=== PATIENT | male | born 1990 ===

== ENCOUNTER 2024-02-27 19:13 | Emergency (ER) | payer MEDICAID, SELFPAY ==
[2024-02-27 19:57] VITALS: BP 126/71; PULSE 96; RESP 18; TEMP 36.8; O2SAT 97
[2024-02-27 20:14] LABS: Amphetamine Screen Urine Negative (Negative); Barbiturate Screen Urine Negative (Negative); Benzodiazepines Screen Urine Negative (Negative); Cannabinoid Screen Urine POSITIVE (Negative); Cocaine Screen Urine Negative (Negative); Methadone Screen Urine Negative (Negative); Methamphetamines Screen Urine Negative (Negative); Opiate Screen Urine Negative (Negative); Oxycodone Screen Urine Negative (Negative); Phencyclidine Screen Urine Negative (Negative); Tricyclic Antidepressant Urine Negative (Negative)
== END 2024-02-27 20:53 | disposition home or self-care (01) ==
PROVIDERS: Emergency Provider Family Medicine
DX: Z53.21 Procedure and treatment not carried out due to patient leaving prior to being seen by health care provider (principal)
CPT/HCPCS: 80306

== ENCOUNTER 2024-05-18 02:19 | Outpatient (CLI) | payer OTHER, SELFPAY | END 2024-05-18 02:20 | disposition home or self-care (01) | LOC: AMB 05-20 08:06 | PROVIDERS: Visit Provider Family Medicine | DX: R45.851 Suicidal ideations (principal); R41.82 Altered mental status, unspecified | CPT/HCPCS: A0425; A0429 ==

== ENCOUNTER 2024-05-18 02:48 | Emergency (ER) | payer OTHER, SELFPAY ==
--- NOTE | 2024-05-18 02:53 | ED_ITS ---
HPI - General Adult General Time Seen by Provider: 02:53 Date Seen: 05/18/24 Chief complaint: Altered Mental Status Stated complaint: altered mental status Time Seen by Provider: 05/18/24 02:51 Source: patient, EMS, RN notes reviewed and old records reviewed Mode of arrival: EMS Limitations: altered mental status History of Present Illness HPI narrative: 34-year-old male who presents today with agitation. Per EMS patient was constitution party, drinking alcohol and possibly drug use although unknown. Patient himself has no complaints. Related Data Home Medications ?Medication ?Instructions ?Recorded ?Confirmed escitalopram oxalate .ROUTE 02/27/24 gabapentin .ROUTE 02/27/24 zolpidem .ROUTE 02/27/24 Allergies Allergy/AdvReac Type Severity Reaction Status Date / Time No Known Drug Allergies Allergy Verified 05/18/24 03:26 Exam Narrative: Exam Narrative: General: well nourished , agitated, difficult to direct Head: Atraumatic and normocephalic ENT: External ears and external nose are normal Eyes: Conjunctiva clear, pupils are equal reactive, external ocular motions are intact Neck: Full spontaneous range of motion of the neck Lungs: No respiratory distress Musculoskeletal: No tenderness or deformity Neurologic: No gross focal neurologic deficits Skin: No rashes Psych: Agitated Const: Vital Signs, click to edit/add: Vital Signs - 24 hr 05/18/24 03:13 Temperature 98.4 F Pulse Rate [Right Pulse Oximeter] 79 Respiratory Rate 18 Blood Pressure [Ri ght Upper Arm] 84/43 L Pulse Oximetry 95 Oxygen Delivery Me thod Room Air Course Course ED Course: Patient seen on any EMS arrival, reportedly was drinking at a constitution party, question of fall. Unable to fully assess on initial arrival due to patient agitation and difficult to direct, ambulatory in the department with no external signs of trauma. Chemical restraint with Benadryl/Haldol/Ativan ordered due to agitation and concern for staff safety and patient safety the department. After this, patient is still quite awake, although more cooperative. He has no complaints, admits to alcohol use. Patient will be allowed to sober in the department and plan to discharge in the morning. Reevaluation(s) Time of Reevaluation #1: 07:10 Reevaluation #1: Patient rested for the night, up and walking around the room and now back to sleep. Plan to side out to oncoming provider to outpatient sober and discharge. Vital Signs Vital signs: Initial Vital Signs Temperature 98.4 F 05/18/24 03:13 Temperature Source Temporal Artery Scan 05/18/24 03:13 Pulse Rate 79 05/18/24 03:13 Pulse Rhythm Regular 05/18/24 03:13 Pulse Strength 3+ Normal 05/18/24 03:13 Respiratory Rate 18 05/18/24 03:13 Blood Pressure 84/43 L 05/18/24 03:13 Blood Pressure Mean 56 L 05/18/24 03:13 Blood Pressure Position Supine 05/18/24 03:13 Pulse Oximetry 95 05/18/24 03:13 Oxygen Delivery Method Room Air 05/18/24 03:13 Vital Signs Temperature 98.4 F 05/18/24 03:13 Pulse Rate 79 05/18/24 03:13 Respiratory Rate 18 05/18/24 03:13 Blood Pressure 84/43 L 05/18/24 03:13 Pulse Oximetry 95 05/18/24 03:13 Oxygen Delivery Method Room Air 05/18/24 03:13 Temperature 98.4 F 05/18/24 03:13 Pulse Rate 79 05/18/24 03:13 Respiratory Rate 18 05/18/24 03:13 Blood Pressure 84/43 L 05/18/24 03:13 Pulse Oximetry 95 05/18/24 03:13 Oxygen Delivery Method Room Air 05/18/24 03:13 Medications Administered Medications: Discontinued Medications Generic Name Dose Route Start Last Admin Trade Name Freq PRN Reason Stop Dose Admin Diphenhydramine HCl 50 mg 05/18/24 02:51 05/18/24 03:04 Diphenhydramine 50 Mg/Ml Inj IM 05/18/24 02:52 50 mg ONCE ONE Administration Haloperidol Lactate 5 mg 05/18/24 02:51 05/18/24 03:04 Haloperidol 5 Mg/Ml Inj IM 05/18/24 02:52 5 mg ONCE ONE Administration Lorazepam 2 mg 05/18/24 02:51 05/18/24 03:03 Lorazepam 2 Mg/Ml Inj IM 05/18/24 02:52 2 mg ONCE ONE Administration Discharge Plan Discharge Clinical Impression: Alcoholic intoxication Patient Disposition: Home, Self-Care Condition: Stable Instructions: Alcohol Intoxication (DC) Activity Level: No Restrictions Discharge Diet: Regular Prescriptions: No Action zolpidem [Ambien] .ROUTE escitalopram oxalate [Lexapro] .ROUTE gabapentin .ROUTE Follow Up/Referrals: Provider,Not a Local [Primary Care Provider] - Stand Alone Forms: [employer] Info Instructions
[2024-05-18] MEDS: LORazepam 2 MG/ML inj IM (03:03)
[2024-05-18] MEDS: diphenhydrAMINE 50 MG/ML inj IM (03:04)
[2024-05-18] MEDS: HALOPERIDOL 5 MG/ML INJ IM (03:04)
[2024-05-18 03:13] VITALS: BP 84/43; PULSE 79; RESP 18; TEMP 36.9; O2SAT 95; BMI 23.0
== END 2024-05-18 09:29 | disposition home or self-care (01) ==
PROVIDERS: Emergency Provider Family Medicine
DX: F10.129 Alcohol abuse with intoxication, unspecified (principal)
CPT/HCPCS: 96372; 99283; 99284; J1200; J1630; J2060

== ENCOUNTER 2024-07-09 19:46 | Emergency (ER) | payer MEDICAID, SELFPAY ==
[2024-07-09 19:57] VITALS: BP 119/55; PULSE 140; RESP 20; TEMP 36.1; O2SAT 99
--- NOTE | 2024-07-09 20:33 | ED_ITS ---
HPI - Psych General Chief Complaint: Psychiatric Problem/Disorder Stated Complaint: mental health Time Seen by Provider: 07/09/24 19:52 History of Present Illness HPI Narrative: This 34-year-old male this brought in by police for psychiatric evaluation. He had contacted the police earlier today convinced that there were people out to get him and there were people also in his home. The police check things out and reassured him that everything was okay. He continued to have these paranoid as and contacted police again apparently. They bring him in for evaluation. He states that he does have PTSD and knows that he has a convincing thoughts that people are out to get him. He states that he has been using marijuana but not any other street drugs. He has been taking his psychotropic medications as prescribed including gabapentin, Lexapro, and Seroquel. He appears somewhat a gitated but is pleasant and cooperative. Related Data Home Medications ?Medication ?Instructions ?Recorded ?Confirmed escitalopram oxalate .ROUTE 02/27/24 gabapentin .ROUTE 02/27/24 zolpidem .ROUTE 02/27/24 Allergies Allergy/AdvReac Type Severity Reaction Status Date / Time No Known Drug Allergies Allergy Verified 05/18/24 03:26 Review of Systems Status of ROS: Reports: 10 or more systems reviewed and unremarkable except as noted in History and below Narrative: Constitutional: No fevers, no weight gain or loss. Eyes: No discharge. No vision changes. HENT: No congestion, no sore throat, no ear pain. Cardiovascular: No chest pain, no palpitations. Respiratory: No shortness of breath, no wheezes, no cough. Gastrointestinal: No abdominal pain, no vomiting, no diarrhea. Genitourinary: No dysuria, no hematuria. Musculoskeletal: Normal range of motion. Skin: No rashes, no pruritis. Neurological: No dizziness, weakness, sensory change, speech change. Endo/Heme/Allergies: No bruising or bleeding. No polydipsia. Pysch: PTSD, anxiety, paranoia as. All other systems reviewed and are negative. Exam Narrative: Exam Narrative: Constitutional: Well-developed, well-nourished, no acute distress. HEENT: Normocephalic, atraumatic. Neck: Normal range of motion. Nontender. Supple. Heart: Intact distal pulses. Lungs: No chest discomfort. No wheezes, rhonchi, or rales. Abdomen: Nontender. Back: Normal range of motion. Extremities: Normal range of motion. No injury. Skin: Intact. No rash. Warm. No erythema or pallor. Neurologic: No altered sensation. No weakness. Alert and oriented. Psychiatric: No report of suicidality. He reports lots of anxiety and paranoia about people out to get him. Nursing notes and vitals signs are reviewed. Const: Vital Signs, click to edit/add: Vital Signs - 24 hr 07/09/24 19:57 Temperature 97.0 F L Pulse Rate [Left P ulse Oximeter] 140 H Respiratory Rate 20 Blood Pressure [Ri ght Upper Arm] 119/55 L Pulse Oximetry 99 Oxygen Delivery Me thod Room Air Course Vital Signs Vital signs: Initial Vital Signs Temperature 97.0 F L 07/09/24 19:57 Temperature Source Temporal Artery Scan 07/09/24 19:57 Pulse Rate 140 H 07/09/24 19:57 Pulse Rhythm Regular 07/09/24 19:57 Respiratory Rate 20 07/09/24 19:57 Blood Pressure 119/55 L 07/09/24 19:57 Blood Pressure Mean 76 07/09/24 19:57 Blood Pressure Position Sitting 07/09/24 19:57 Pulse Oximetry 99 07/09/24 19:57 Oxygen Delivery Method Room Air 07/09/24 19:57 Vital Signs Temperature 97.0 F L 07/09/24 19:57 Pulse Rate 140 H 07/09/24 19:57 Respiratory Rate 20 07/09/24 19:57 Blood Pressure 119/55 L 07/09/24 19:57 Pulse Oximetry 99 07/09/24 19:57 Oxygen Delivery Method Room Air 07/09/24 19:57 Temperature 97.0 F L 07/09/24 19:57 Pulse Rate 140 H 07/09/24 19:57 Respiratory Rate 20 07/09/24 19:57 Blood Pressure 119/55 L 07/09/24 19:57 Pulse Oximetry 99 07/09/24 19:57 Oxygen Delivery Method Room Air 07/09/24 19:57 Medications Administered Medications: Discontinued Medications Generic Name Dose Route Start Last Admin Trade Name Freq PRN Reason Stop Dose Admin Lorazepam 1 mg 07/09/24 20:32 07/09/24 20:38 Lorazepam 1 Mg Tablet PO 07/09/24 20:33 1 mg ONCE ONE Administration Olanzapine 10 mg 07/09/24 21:21 07/09/24 21:45 Olanzapine 5 Mg Tab.Rapdis PO 07/09/24 21:22 10 mg ONCE ONE Administration MDM - Psych MDM Narrative Medical decision making narrative: This patient has significant paranoia and anxiety and at times becomes agitated. He did receive an oral dose of Ativan 1 mg. A tele [facility] mental assessment was obtained also and recommendation is for inpatient evaluation and treatment. The patient stated to me that he is taking his medications but states to the telehealth eating disorder specialist that he has not taking any medicines for a couple months. I did prescribe 10 mg of Zyprexa orally. This brought good relief to his symptoms in the patient is sleeping comfortably. Attempt was made for placement in an inpatient psych facility but there were no beds available currently. The patient will reside here until something opens. Discharge Plan Discharge Clinical Impression: Acute paranoia, Acute anxiety, Chronic posttraumatic stress disorder Condition: Unchanged Prescriptions: No Action zolpidem [Ambien] .ROUTE escitalopram oxalate [Lexapro] .ROUTE gabapentin .ROUTE Follow Up/Referrals: Provider,Not a Local [Primary Care Provider] -
[2024-07-09] MEDS: LORazepam 1 MG TABLET PO (20:38)
--- NOTE | 2024-07-09 20:59 | ED.NURSE ---
Pt beginning to talk to himself and look to see if there are windows exposing him to public view. States he is feeling okay at this time. Will continue to monitor, pt is redirectable at this time.
--- NOTE | 2024-07-09 21:08 | ED.NURSE ---
Talking with Prosper in the room at this time [id number]
--- NOTE | 2024-07-09 21:42 | ED.NURSE ---
Pt keeps opening door to room and looking to see who is coming and going in the ER, he wants no visitors, assistant front end manager is aware.
[2024-07-09] MEDS: OLANZapine 5 MG TAB.RAPDIS 10 MG PO (21:45)
[2024-07-10 04:00] VITALS: PULSE 92; RESP 16; O2SAT 98
[2024-07-10] MEDS: QUETIAPINE 25 MG TABLET 50 MG PO (09:46)
[2024-07-10] MEDS: LORazepam 1 MG TABLET PO (09:47)
[2024-07-10] MEDS: ESCITALOPRAM 10 MG TABLET PO (10:30)
[2024-07-10] MEDS: GABAPENTIN 100 MG CAPSULE PO (10:30)
[2024-07-10] MEDS: OLANZapine 5 MG/ML inj 10 MG IM (10:55)
[2024-07-10 12:32] LABS: PCR FLU A Negative PCR FLU A (Negative); PCR FLU B Negative PCR FLU B (Negative); PCR RSV Negative PCR RSV (Negative); SARS PCR* Negative SARS-CoV-2 (Negative)
[2024-07-10 14:47] LABS: Appearance Urine Clear (Clear); Bilirubin Urine Negative (Negative); Blood Urine Negative (Negative); Color Urine Yellow (Yellow); Glucose Urine Negative (Negative); Ketones Urine Negative (Negative); Leukocyte Esterase Urine Negative (Negative); Nitrite Urine Negative (Negative); Protein Urine Negative (Negative); Specific Gravity Urine <= 1.005 (1.000-1.030); Urobilinogen Urine 0.2 (0.2-1.0); pH Urine 5.5 (5.0-8.5)
[2024-07-10 14:59] LABS: RBC Urine 0-2 (0-2); WBC Urine 0-2 (0-5)
[2024-07-10 17:47] VITALS: BP 137/97; PULSE 102; RESP 18; TEMP 36.6; O2SAT 98
[2024-07-10 21:10] VITALS: BP 107/64; PULSE 60; RESP 16; TEMP 37.3; O2SAT 96
[2024-07-10] MEDS: OLANZapine 5 MG TAB.RAPDIS 10 MG PO (21:16)
[2024-07-10 23:57] LABS: Amphetamine Screen Urine POSITIVE (Negative); Benzodiazepines Screen Urine POSITIVE (Negative); Cannabinoid Screen Urine POSITIVE (Negative); Cocaine Screen Urine Negative (Negative); Methamphetamines Screen Urine POSITIVE (Negative); Opiate Screen Urine Negative (Negative); Phencyclidine Screen Urine Negative (Negative)
[2024-07-10 23:58] LABS: Barbiturate Screen Urine Negative (Negative); Buprenorphine Screen Urine Negative (Negative); Methadone Screen Urine Negative (Negative); Oxycodone Screen Urine Negative (Negative); Tricyclic Antidepressant Urine POSITIVE (Negative); White Blood Count* 7.92 K/uL (4.50-11.00)
[2024-07-10 23:59] LABS: Hematocrit 46.6 % (37.0-53.0); Hemoglobin* 15.5 gm/dL (13.5-17.5); Lymphocytes Percent Auto 21.5 % (20-44); Mean Corpuscular HGB Conc 33 gm/dL (32-36); Mean Corpuscular Hemoglobin 31 pg (26-34); Mean Corpuscular Volume 92 fL (80-100); Neutrophils Percent Auto 63.6 % (42.0-72.0); Platelet Count* 275 K/uL (140-440); RDW Coefficient of Variation % 12.6 % (11.5-15.5); Red Blood Count 5.05 m/uL (4.30-5.90)
[2024-07-11] LABS: Basophils Percent Auto 0.8 % (0.0-3.0); Chloride* 103 mmol/L (96-114); Monocytes Percent Auto 11.1 % (0.0-11.0); Potassium* 3.7 mmol/L (3.6-5.1); Slide Review Reflex No; Sodium* 137 mmol/L (135-149)
[2024-07-11 00:01] LABS: Acetaminophen* < 10.0 ug/mL (10.0-30.0); Anion Gap 11 mEq/L (7-15); Blood Urea Nitrogen* 25 mg/dL (5-24); Calcium* 9.3 mg/dL (8.4-10.6); Carbon Dioxide* 23 mmol/L (20-32); Creatinine* 0.7 mg/dL (0.5-1.5); Estimated Glomerular Filt Rate 124 ml/min; Ethanol* < 0.01 % (0.01-0.03); Glucose* 115 mg/dL (60-115)
[2024-07-11 06:21] VITALS: BP 176/80; PULSE 99; RESP 16; O2SAT 98
[2024-07-11] MEDS: LORazepam 1 MG TABLET 2 MG PO (06:29)
[2024-07-11 15:30] VITALS: BP 135/92; PULSE 87; RESP 20; O2SAT 98
[2024-07-11] MEDS: GABAPENTIN 100 MG CAPSULE PO (17:34)
[2024-07-11] MEDS: OLANZapine 5 MG TAB.RAPDIS 10 MG PO (18:22)
[2024-07-11] MEDS: QUETIAPINE 25 MG TABLET 50 MG PO (18:46)
[2024-07-11] MEDS: ESCITALOPRAM 10 MG TABLET PO (18:47)
[2024-07-12 02:31] VITALS: BP 128/74; PULSE 81; RESP 20; TEMP 37.3; O2SAT 98
[2024-07-12 05:00] VITALS: BP 118/70; PULSE 79; RESP 20; TEMP 37.3; O2SAT 98
== END 2024-07-12 11:41 | disposition home or self-care (01) ==
PROVIDERS: Emergency Medicine; Emergency Medicine Emergency Medical Services; Emergency Provider Family Medicine
DX: F43.12 Post-traumatic stress disorder, chronic (principal); F60.0 Paranoid personality disorder
CPT/HCPCS: 36415; 80048; 80143; 80306; 81001; 82077; 85025; 87631; 99284; A9270

== ENCOUNTER 2024-10-24 01:41 | Emergency (ER) | payer MEDICAID, SELFPAY ==
--- OUTSIDE RECORDS SUMMARY | 2024-10-24 01:44 | XMS_ITS | Clinical Summary ---
Author Organization [facility] Address [address] [place] [id number] Care Team Providers Care Hand Surgeon Name Role Phone Pcp, No Primary Care Provider Unavailabl e Allergies No known active allergies Medications gabapentin (NEURONTIN) 100 mg capsule Take 1 Capsule (100 mg) by mouth three times daily. 09/11/2024 Active QUEtiapine (SEROQUEL) 25 mg tabletIndicatio ns:JERALD (generalized anxiety disorder),Depre ssion, recurrent Take 1 Tablet (25 mg) by mouth at bedtime. 90 Tablet 3 09/11/2024 Active escitalopram oxalate (LEXAPRO) 10 mg tabletIndicatio ns:JERALD (generalized anxiety disorder) Take 1 Tablet (10 mg) by mouth once daily. 90 Tablet 3 09/11/2024 Active Active Problems Problem Noted Date Diagnosed Date Alcohol use 09/11/2024 JERALD (generalized anxiety disorder) 09/11/2024 Depression, recurrent 09/11/2024 Encounters Date Type Department Care Team Description 10/04/2024 6:52 PM CDT - 10/05/2024 11:17 AM CDT Emergency [facility] Emergency Department [address] [place] [address] Darren Gloria MD Bowler, MD Tyrone García, Travis Iglesias MD Schizoaffective disorder, unspecified type (HC) (Primary Dx); JERALD (generalized anxiety disorder); Paranoia (HC); Nightmares; Depression, unspecified depression type; Insomnia, unspecified type; Noncompliance with medication regimen Discharge Disposition: Home Self Care 10/04/2024 Travel 09/27/2024 Patient Outreach [employer] Care Management - Care Management Navigation/[facility] [address] [place] [id number] [facility]-Community Resource Navigation 09/11/2024 10:35 AM OBSTETRICS TECH Office Visit [facility] [address] [place] [address] Clint Sargent, Depression (Would like to get my head straight - just moved here in June - previously doctoring in [place] ); Anxiety (Has used lexapro, Seroquel, gabapentin); Alcohol Problem (Was drinking not a lot - has not drank since New Year /Has not used marijuana since ) 09/10/2024 Travel from Last 3 Months Social History Tobacco Use Types Packs/Day Years Used Date Smoking Tobacco: Former Cigarettes Q uit: 06/18/2023 Smokeless Tobacco: Never Tobacco Cessation:Counseling Given: Not Answered Alcohol Use Standard Drinks/Week Comments Not Currently 0 (1 standard drink = 0.6 oz pur e alcohol) Sober since 07/2024 Social Connections Answer Date Recorded Do you often feel lonely or isolated from those around you? 4 09/10/2024 Financial Resource Strain Answer Date R ecorded Difficulty of Paying Living Expenses Not on file 09/10/2024 Difficulty of Paying Living Expenses 3 09/10/2024 Food Insecurity Answer Date Recorded Do you worry your food will run out before you are able to buy more? 2 09/10/2024 Transportation Needs Answer Date Record ed Does lack of transportation keep you from medica l appointments? 2 09/10/2024 Does lack of transportation keep you from work, meetings or getting things that you need? 2 09/10/2024 Housing Stability Answer Date Recorded What is your housing situation today? 2 09/10/2024 Interpersonal Safety Answer Date Record ed Are you being hit, kicked, p ushed or yelled at (see row info)? No 10/04/2024 Interpersonal Safety Abuse 12 - 18 Not on file 10/04/2024 Interpersonal Safety Ambulatory Vulnerability No t on file 10/04/2024 Utilities Answer Date Recorded Do you have trouble paying f or utilities (for example, heat, electricity, water, phone)? 2 09/10/2024 Sex and Gender Information Value Date Recorded Sex Assigned at Not on file Legal Sex Male 10:33 AM OBSTETRICS TECH Gender Identity Not on file Sexual Orientation Not on file Obstetrics History Last Filed Vital Signs Vital Sign Reading Time Taken Comments Blood Pressure 112/81 10/05/2024 8:25 AM CDT Pulse 59 10/05/2024 8:25 AM CDT Temperature 36.7 C (98 F) 10/04/2024 12:42 PM CDT Respiratory Rate 16 10/05/2024 8:25 AM CDT Oxygen Saturation 97% 10/05/2024 8:25 AM CDT Inhaled Oxygen Concentration - - Weight 80.7 kg (178 lb) 10/04/2024 12:42 PM CDT Height 182.9 cm (6') 10/04/2024 12:42 PM CDT Body Mass Index 24.14 10/04/2024 12:42 PM CDT Plan of Treatment Health Maintenance Due Date Last Done Comments Tdap 2001 Depression screening for age 12+ 2002 HIV for age 15-65 2005 BMI (ht and wt on same day) for age 18+ 2008 Hepatitis C screening for ag e 18-79 2008 Tetanus booster 2010 COVID-19 vaccine series ( season) 2024 Influenza Vaccine (Season Ended) 2025 Pneumococcal series for age 6-49 Aged Out No longer eligible based on patient's age to complete this topic Procedures Procedure Name Priority Date/Time Associated Diagnosis Comments DRUG SCREEN RAPID URINE INHOUSE STAT 10/05/2024 6:27 AM CDT GLUCOSE METER Timed 10/04/2024 9:33 PM CDT from Last 3 Months Results * (ABNORMAL) DRUG SCREEN RAPID URINE INHOUSE (10/05/2024 6:27 AM CDT) THC METABOLITES,MARLENA L Non-negative , consider further testing if indicated(A) Not Detected 10/05/2024 6:57 AM CDT [facility] PCP,QUAL Not Detected Not Detected 10/05/2024 6:57 AM CDT [facility] COCAINE,QUAL Not Detected Not Detected 10/05/2024 6:57 AM CDT [facility] METHAMPHETAMINE , QUALITATIVE Non-negative , consider further testing if indicated(A) Not Detected 10/05/2024 6:57 AM CDT [facility] OPIATES,QUAL Not Detected Not Detected 10/05/2024 6:57 AM T [facility] AMPHETAMINE, QUALITATIVE Non-negative , consider further testing if indicated(A) Not Detected 10/05/2024 6:57 AM T [facility] BENZODIAZEPINES ,QUAL Non-negative , consider further testing if indicated(A) Not Detected 10/05/2024 6:57 AM CDT [facility] TRICYCLICS,QUAL Not Detected Not Detected 10/05/2024 6:57 AM CDT [facility] METHADONE, QUALITATIVE Not Detected Not Detected 10/05/2024 6:57 AM [facility] BARBITURATES,QU AL Not Detected Not Detected 10/05/2024 6:57 AM T [facility] OXYCODONE, QUALITATIVE Not Detected Not Detected 10/05/2024 6:57 AM [facility] BUPRENORPHINE, QUALITATIVE Not Detected Not Detected 10/05/2024 6:57 AM [facility] Urine URINE SPECIMEN / Unknown Non-Blood / Unknown 10/05/2024 6:27 AM CDT 10/05/2024 6:[address] [facility] - 10/05/2024 6:57 AM CDT Please Note: This is a screening test only, all results are unconfirmed and should be used for medical purposes only. Unconfirmed results must not be used for non-medical purposes (e.g., employment testing, legal testing). Suggest analyte specific confirmation for all non-negative results. Specimens will be held for 24 hours if additional testing is needed. The following threshold concentrations are used for this analysis: Drug Screening Threshold Buprenorphine 10 ng/mL PCP 25 ng/mL THC Metabolites 50 ng/mL *Opiates 100 ng/mL Oxycodone 100 ng/mL Cocaine 150 ng/mL Benzodiazepines 150 ng/mL Methadone 200 ng/mL Barbiturates 200 ng/mL Tricyclic Antidepressants 300 ng/mL Amphetamines 500 ng/mL Methamphetamines 500 ng/mL *Includes related compounds: Codeine 50 ng/mL Heroin 100 ng/mL Morphine 100 ng/mL Hydrocodone 400 ng/mL Hydromorphone 800 ng/mL Venlafaxine (Effexor) is a known cross reactant in the PCP assay. If clinically indicated, order PCP confirmation. us Darren Gloria MD URINE Final Result [facility] [address] [address], * (ABNORMAL) GLUCOSE METER (10/04/2024 9:33 PM CDT) [facility] GLUCOSE METER 101(H) 65 - 100 mg/dL 10/05/2024 12:31 AM CDT [facility] Blood BLOOD SPECIMEN / Unknown 10/04/2024 9:33 PM CDT 10/05/2024 12:31 AM CDT Darren Gloria MD CHEMISTRY Final Result Performing Organization Address City/[facility]/ZIP Co de Phone Number [facility] [address] [place] [address], from Last 3 Months Insurance [facility] Care Teams Hand Surgeon Relationship Specialty Start Date End Date Pcp, No . PCP - General 09/01/24
[2024-10-24 02:01] VITALS: BP 156/99; PULSE 128; RESP 16; O2SAT 99; BMI 25.8
--- NOTE | 2024-10-24 02:20 | ED_ITS ---
HPI - General Adult General Chief complaint: Psychiatric Problem/Disorder <Nicolle Colvin MD - Last Filed: 10/24/24 23:56> Stated complaint: mental health <Nicolle Colvin MD - Last Filed: 10/24/24 23:56> Time Seen by Provider: 10/24/24 01:47 <Nicolle Colvin MD - Last Filed: 10/24/24 23:56> Source: patient and police <Nicolle Colvin MD - Last Filed: 10/24/24 23:56> Mode of arrival: ambulatory <Nicolle Colvin MD - Last Filed: 10/24/24 23:56> History of Present Illness HPI narrative: 34-year-old male with a notable prior history of what he initially states his PTSD but then more clearly describes as schizoaffective disorder, delusional disorder and then eventually does disclose that someone has suspected him of having manic episodes. Reports that he has had poor functioning since around [place]. Review of the records shows that he was last evaluated in our ED on 07/09. He was eventually discharged after his symptoms improved after restarting antipsychotic medications on the . Patient reports that he has seen a psychiatrist at [facility], last visit was a couple of months ago. He has been prescribed Seroquel him the past for his moods. It sounds as though he has been very inconsistent with taking the medication. He tells me that he had been just taking little nibbles of it because it tends to make him more tired. He had been prescribed 100 mg daily in the past according to what limited records we have. He states that the psychiatrist he saw more recently prescribed 25 mg and patient has actually been taking 2 tablets per day over the last week or so because he feels like his paranoia and delusions are getting stronger. He has insight that these thoughts are not completely logical. He gets fleeting thoughts that he is the president and someone is trying to assess sedate him and that there are people on the rough but then he will come to his senses and know that that is not real but still feels significant anxiety and paranoia regarding this. He is only sleeping a couple of hours per day even though he does try to sleep for about 5 hours but finds himself restless. He tells me that he is taking Lexapro 10 mg once daily, he also has a history of ADHD and is not currently on treatment for that. He does not use any sleep aids. No illicit drugs or alcohol. He does take gabapentin 300 t.i.d. for chronic pain in his heel from a calcaneus fracture, remote. No recent changes to that dose and he tells me that he has been on that for at least a couple of years. No recent fevers, illness or trauma. Denies any acute medical symptoms like chest pain, GI bleed, chronic diarrhea or weight loss. He is currently living with an ex girlfriend who he states is a real estate branch manager at [place] named Ingris. Previous ED note indicates that he has a mother in the [place] area. He did have some mild agitation initially at his last ED visit but was then calm th rough the rest of the encounter until he was able to be discharged. He does admit to some restless leg symptoms and denies ever being on treatment for that. He did call the research chemical engineer to have them come check to see if there was someone on his rough and they were able to reassure him that he was not in immediate danger but they did encourage him to come voluntarily to the hospital to to have his mental health checked out and he oblige is. He admits that his family has been urging him to seek care and that he has been spiraling for the last few months. Denies suicidal ideation. No history of self-harm. Has been hospitalized for his moods in the past but he goes quiet when I ask about specifics and timeline on that. Past medical history notable for mental health illness, it sounds like definite diagnosis of schizoaffective disorder and some sort of depression and anxiety as well as ADHD. He denies substance abuse to me but during the telehealth assessment he did admit to that provider that he had been doing some cocaine that he thinks may have been laced with methamphetamines but will not clarify for her the timeline of this. Adamantly denied drugs and alcohol both to me. ROS is negative for any medical symptoms times 12 systems with the exception of insomnia, paranoia and mental health issues as further described above. <Nicolle Colvin MD - Last Filed: 10/24/24 23:56> Related Data Home medications: Home Medications ?Medication ?Instructions ?Recorded ?Confirmed gabapentin 300 mg PO TID 02/27/24 10/24/24 zolpidem .Route 02/27/24 escitalopram oxalate 10 mg tablet 10 mg PO DAILY 10/24/24 10/24/24 quetiapine 25 mg tablet 25 mg PO QPM 10/24/24 10/24/24 <Nicolle Colvin MD - Last Filed: 10/24/24 23:56> Allergies/adverse reactions: Allergies Allergy/AdvReac Type Severity Reaction Status Date / Time No Known Drug Allergies Allergy Verified 10/24/24 02:53 <Nicolle Colvin MD - Last Filed: 10/24/24 23:56> [facility] Medical History: Medical History Bipolar disorder ?F31.9 - Bipolar disorder, unspecified (ICD-10) Paranoia ?F22 - Delusional disorders (ICD-10) <Nicolle Colvin MD - Last Filed: 10/24/24 23:56> Social History: Social History Do you use any of these nicotine containing products: Vaping Products <Nicolle Colvin MD - Last Filed: 10/24/24 23:56> Exam Const: Vital Signs, click to edit/add: Vital Signs - 24 hr 10/24/24 02:01 10/24/24 04:31 10/24/24 09:00 Temperature 98.3 F Pulse Rate [Pulse Oximeter] 128 H 109 H 88 Respiratory Rate 16 16 16 Blood Pressure [Ri ght Upper Arm] 156/99 H 135/89 123/79 Pulse Oximetry 99 97 95 Oxygen Delivery Me thod Room Air Room Air Room Air <Nicolle Colvin MD - Last Filed: 10/24/24 23:56> Vital Signs, click to edit/add: Vital Signs - 24 hr 10/24/24 02:01 10/24/24 04:31 10/24/24 09:00 Temperature 98.3 F Pulse Rate [Pulse Oximeter] 128 H 109 H 88 Respiratory Rate 16 16 16 Blood Pressure [Ri ght Upper Arm] 156/99 H 135/89 123/79 Pulse Oximetry 99 97 95 Oxygen Delivery Me thod Room Air Room Air Room Air <Andrea Brito MD - Last Filed: 10/24/24 15:24> Documenting provider has reviewed patient's vital signs: yes <Nicolle Colvin MD - Last Filed: 10/24/24 23:56> Common normals: alert <Nicolle Colvin MD - Last Filed: 10/24/24 23:56> Other: Calm and cooperative. He comes in very casually dressed in athletic where but clean, no malodor. Does make eye contact, restless but no agitation or aggressive behavior. Police accompany him in but stand the side and they do depart about 10 minutes into our conversation as it is clear that he is calm and cooperative. <Nicolle Colvin MD - Last Filed: 10/24/24 23:56> HENMT: Common normals: normocephalic, nasal mucous membranes and turbinates normal, moist oral mucous membranes, oropharynx normal and dentition normal <Nicolle Colvin MD - Last Filed: 10/24/24 23:56> Head and scalp: normocephalic <Nicolle Colvin MD - Last Filed: 10/24/24 23:56> Nose: nasal mucous membranes and turbinates normal <Nicolle Colvin MD - Last Filed: 10/24/24 23:56> Eye: Common normals: PERRL, EOMs intact bilaterally, conjunctivae normal and no scleral icterus <Nicolle Colvin MD - Last Filed: 10/24/24 23:56> Conjunctiva: conjunctiva(e) normal <Nicolle Colvin MD - Last Filed: 10/24/24 23:56> Pupil: PERRL <Nicolle Colvin MD - Last Filed: 10/24/24 23:56> Neck & C-Spine: Common normals: full ROM, no lymphadenopathy and no meningeal signs <Nicolle Colvin MD - Last Filed: 10/24/24 23:56> Resp: Common normals: normal respiratory effort, no use of accessory muscles and clear to auscultation bilaterally <MD Ronald Moore Last Filed: 10/24/24 23:56> Effort & inspection: able to speak in complete sentences <MD Ronald Moore Last Filed: 10/24/24 23:56> Auscultation: clear to auscultation bilaterally <MD Ronald Moore Last Filed: 10/24/24 23:56> Cardio: Common normals: regular rate, regular rhythm, S1 normal heart sound, S2 normal heart sound and no murmurs <MD Ronald Moore Last Filed: 10/24/24 23:56> Rate: regular rate <MD Ronald Moore Last Filed: 10/24/24 23:56> Rhythm: regular rhythm <MD Ronald Moore Last Filed: 10/24/24 23:56> Heart sounds: S1 normal and S2 normal <MD Ronald Moore Last Filed: 10/24/24 23:56> GI: Common normals: Normal to inspection, nondistended, normoactive bowel sounds present, soft to palpation, non-tender, no hepatosplenomegaly and no masses <MD Ronald Moore Last Filed: 10/24/24 23:56> Palpation: soft and no hepatosplenomegaly <MD Ronald Moore Last Filed: 10/24/24 23:56> Back & Pelvis: Common normals: thoracic and lumbar spine normal to inspection <MD Ronald Moore Last Filed: 10/24/24 23:56> Extremity: Common normals: normal to inspection and normal capillary refill <MD Ronald Moore Last Filed: 10/24/24 23:56> Neuro: Sensorium/orientation: alert <MD Ronald Moore Last Filed: 10/24/24 23:56> Meningeal signs: no meningeal signs <MD Ronald Moore Last Filed: 10/24/24 23:56> Speech: speech normal <MD Ronald Moore Last Filed: 10/24/24 23:56> Gait (neuro): normal gait <Nicolle Colvin MD - Last Filed: 10/24/24 23:56> Motor exam: strength 5/5 throughout and no tremor noted <Nicolle Colvin MD - Last Filed: 10/24/24 23:56> Psych: Appearance: grossly normal <Nicolle Colvin MD - Last Filed: 10/24/24 23:56> Other: Patient is slightly restless but no agitation. He is cooperative with exam though guarded. No suicidal or homicidal thoughts. Does seem paranoid but with insight into the fact that these are probably delusions. His thought process is tangental, attempts to ask him to clarify do not always correctly answer a question. He is redirectable, goal directed. He accepts reasoning and does seem fairly intelligent. <Nicolle Colvin MD - Last Filed: 10/24/24 23:56> Skin: Common normals: no rashes or lesions noted <Nicolle Colvin MD - Last Filed: 10/24/24 23:56> Narrative: No signs of self injury or recent trauma. <Nicolle Colvin MD - Last Filed: 10/24/24 23:56> General skin exam: no rashes or lesions noted <Nicolle Colvin MD - Last Filed: 10/24/24 23:56> Course Course ED Course: 34-year-old male with symptoms of hypomania and paranoid delusions, questioning substance induced mood disorder based on telehealth interpretation but more likely multifactorial and from chronic mental illness since this has been going on for the past 4 months. Patient was agreeable to a trial of some oral medications to help stabilize him. I do think that this is a hypomanic spell and I have recommended that we start Depakote. Since I am not quite sure what he has been taking and I do not have labs back, I will start low with Depakote 250 mg p.o. b.i.d., 1st dose now and Abilify only 5 mg to be given at bedtime, 1st dose now as well. He does verbalize some concerns about restless leg, I have recommended an 8th of a mg of Mirapex and 0.5 mg of oral lorazepam p.o. x1 and we will see how this goes. Will place him on a regular diet, he is here voluntarily at this point. I will also order lorazepam p.r.n.. I have spoken with the [facility], she did not really give me much for additional insight other than the fact that he admitted to substance abuse. Did not offer any suggestions on treatment plan, placement recommendations, etc.. Because of this, I have asked for psychiatry input, they will be contacting the psychiatry provider. Labs are currently pending. <Nicolle Colvin MD - Last Filed: 10/24/24 23:56> Reevaluation(s) Time of Reevaluation #1: 04:08 <Nicolle Colvin MD - Last Filed: 10/24/24 23:56> Reevaluation #1: PSychiatry agrees that he seems to be exhibiting signs of hypomania as well, patient did admit to cocaine and methamphetamine use. That provider does not feel like the patient is safe for discharge right now. Does recommend that we put him on a hold if he attempts to leave. This will be done. At this point, he is voluntary. In agreement with my initial medication recommendations, they will start the process of attempting to find inpatient treatment. update: Patient slept comfortably overnight after willingly taking the Ativan and melatonin that were offered. It is difficult to sort out how much of his symptoms are methamphetamine induced and how much are chronic and ongoing. I do think that there is a mixture of both. I do have both the Depakote and Abilify scheduled to continue. He has not needed additional p.r.n. Ativan that is ordered. I recommend that we re-evaluate the patient's mental status when he wakes, after more time has elapsed from the methamphetamines and decide if additional treatment is warranted. It does sound as though he has had several months of paranoia and poor functioning and has been Hap has early taking his medications. Based on that alone, I do think he still needs inpatient treatment. If he stabilizes quickly on the aripiprazole and Depakote, consider this plan outpatient. He is likely to need a higher dose of the Depakote. Will hand over care to oncoming day shift team <Nicolle Colvin MD - Last Filed: 10/24/24 23:56> Vital Signs Vital signs: Initial Vital Signs Pulse Rate 128 H 10/24/24 02:01 Respiratory Rate 16 10/24/24 02:01 Blood Pressure 156/99 H 10/24/24 02:01 Blood Pressure Mean 118 H 10/24/24 02:01 Blood Pressure Position Sitting 10/24/24 02:01 Pulse Oximetry 99 10/24/24 02:01 Oxygen Delivery Method Room Air 10/24/24 02:01 Vital Signs Pulse Rate 128 H 10/24/24 02:01 Respiratory Rate 16 10/24/24 02:01 Blood Pressure 156/99 H 10/24/24 02:01 Pulse Oximetry 99 10/24/24 02:01 Oxygen Delivery Method Room Air 10/24/24 02:01 Temperature 98.3 F 10/24/24 04:31 Pulse Rate 88 10/24/24 09:00 Respiratory Rate 16 10/24/24 09:00 Blood Pressure 123/79 10/24/24 09:00 Pulse Oximetry 95 10/24/24 09:00 Oxygen Delivery Method Room Air 10/24/24 09:00 <Nicolle Colvin MD - Last Filed: 10/24/24 23:56> Initial Vital Signs Pulse Rate 128 H 10/24/24 02:01 Respiratory Rate 16 10/24/24 02:01 Blood Pressure 156/99 H 10/24/24 02:01 Blood Pressure Mean 118 H 10/24/24 02:01 Blood Pressure Position Sitting 10/24/24 02:01 Pulse Oximetry 99 10/24/24 02:01 Oxygen Delivery Method Room Air 10/24/24 02:01 Vital Signs Pulse Rate 128 H 10/24/24 02:01 Respiratory Rate 16 10/24/24 02:01 Blood Pressure 156/99 H 10/24/24 02:01 Pulse Oximetry 99 10/24/24 02:01 Oxygen Delivery Method Room Air 10/24/24 02:01 Temperature 98.3 F 10/24/24 04:31 Pulse Rate 88 10/24/24 09:00 Respiratory Rate 16 10/24/24 09:00 Blood Pressure 123/79 10/24/24 09:00 Pulse Oximetry 95 10/24/24 09:00 Oxygen Delivery Method Room Air 10/24/24 09:00 <Andrea Brito MD - Last Filed: 10/24/24 15:24> Medications Administered Medications: Discontinued Medications Generic Name Dose Route Start Last Admin Trade Name Freq PRN Reason Stop Dose Admin Aripiprazole 5 mg 10/24/24 02:14 10/24/24 02:41 Aripiprazole 10 Mg Tablet PO 10/24/24 02:15 5 mg ONCE ONE Administration Divalproex Sodium 250 mg 10/24/24 02:14 10/24/24 02:36 Divalproex Sodium Er Tab 250 Mg PO 10/24/24 02:15 250 mg ONCE ONE Administration Lorazepam 0.5 mg 10/24/24 02:15 10/24/24 02:35 Lorazepam 0.5 Mg Tablet PO 10/24/24 02:16 0.5 mg ONCE ONE Administration Lorazepam 2 mg 10/24/24 04:18 10/24/24 04:22 Lorazepam 1 Mg Tablet PO 10/24/24 04:19 2 mg ONCE ONE Administration Melatonin 9 mg 10/24/24 21:00 10/24/24 04:33 Melatonin 3 Mg Tablet PO 9 mg HS ANTOINETTE Administration Pramipexole Dihydrochloride 0.125 mg 10/24/24 02:15 10/24/24 02:41 Pramipexole 0.25 Mg Tablet PO 0.125 mg HS ANTOINETTE Administration <Nicolle Colvin MD - Last Filed: 10/24/24 23:56> Discontinued Medications Generic Name Dose Route Start Last Admin Trade Name Freq PRN Reason Stop Dose Admin Aripiprazole 5 mg 10/24/24 02:14 10/24/24 02:41 Aripiprazole 10 Mg Tablet PO 10/24/24 02:15 5 mg ONCE ONE Administration Divalproex Sodium 250 mg 10/24/24 02:14 10/24/24 02:36 Divalproex Sodium Er Tab 250 Mg PO 10/24/24 02:15 250 mg ONCE ONE Administration Lorazepam 0.5 mg 10/24/24 02:15 10/24/24 02:35 Lorazepam 0.5 Mg Tablet PO 10/24/24 02:16 0.5 mg ONCE ONE Administration Lorazepam 2 mg 10/24/24 04:18 10/24/24 04:22 Lorazepam 1 Mg Tablet PO 10/24/24 04:19 2 mg ONCE ONE Administration Melatonin 9 mg 10/24/24 21:00 10/24/24 04:33 Melatonin 3 Mg Tablet PO 9 mg HS ANTOINETTE Administration Pramipexole Dihydrochloride 0.125 mg 10/24/24 02:15 10/24/24 02:41 Pramipexole 0.25 Mg Tablet PO 0.125 mg HS ANTOINETTE Administration <Andrea Brito MD - Last Filed: 10/24/24 15:24> Medical Decision Making MDM Narrative Medical decision making narrative: Care for this patient was transferred to pa at the end of Dr. Colvin's shift. The patient is sleeping after being treated with medication. Urinalysis shows evidence of methamphetamine. About mid afternoon the patient is awake and pleasant and cooperative stating that he feels much better. He still tells me that he thought that he had taken cocaine but realize soon thereafter that it had different affects on him. His symptoms are likely due to some methamphetamine induced psychosis. I did re-evaluate him and he does not show any sign of suicidality or intent to harm himself or other people. He is pleasant and cooperative. He is okay to be discharged home. Of course I advised him to avoid street drugs altogether. <Andrea Brito MD - Last Filed: 10/24/24 15:24> Lab Data Lab results reviewed: Yes I reviewed the patient's lab results <Nicolle Colvin MD - Last Filed: 10/24/24 23:56> Lab results narrative: Methamphetamine and marijuana positive, remainder of labs otherwise reassuring. <Nicolle Colvin MD - Last Filed: 10/24/24 23:56> Labs: Lab Results 10/24/24 10/24/24 Range/Units 02:15 02:30 WBC 10.75 (4.50-11.00) K/uL RBC 5.08 (4.30-5.90) m/uL Hgb 15.7 (13.5-17.5) gm/dL Hct 46.1 (37.0-53.0) % MCV 91 (80-100) fL MCH 31 (26-34) pg MCHC 34 (32-36) gm/dL RDW Coeff of Chemo 12.7 (11.5-15.5) % Plt Count 287 (140-440) K/uL Neut % (Auto) 71.3 (42.0-72.0) % Lymph % (Auto) 15.3 L (20-44) % [place] % (Auto) 9.3 (0.0-11.0) % Eos % (Auto) 3.4 (0.0-7.0) % Baso % (Auto) 0.5 (0.0-3.0) % Neut # (Auto) 7.67 H (1.7-7.0) K/uL Lymph # (Auto) 1.60 (0.90-2.90) K/uL [place] # (Auto) 1.00 H (0.00-0.90) K/UL Eos # (Auto) 0.37 (0.00-0.50) K/uL Baso # (Auto) 0.05 (0.00-0.30) K/uL Abs Immat Gran (auto) 0.02 (0.00-0.30) K/uL Imm/Tot Granulo (auto) 0.2 % Sodium 140 (135-149) mmol/L Potassium 4.0 (3.6-5.1) mmol/L Chloride 103 (96-114) mmol/L Carbon Dioxide 27 (20-32) mmol/L Anion Gap 10 (7-15) mEq/L BUN 20 (5-24) mg/dL Creatinine 0.7 (0.5-1.5) mg/dL Estimated Creat Clear 153.53 Estimated GFR 124 ml/min Glucose 111 (60-115) mg/dL Calcium 9.6 (8.4-10.6) mg/dL TSH 0.221 L (0.270-4.200) uIU/mL Free T4 1.11 (0.70-1.85) ng/dL Salicylates < 1.0 L (1.0-10) mg/dL Urine Opiates Screen Negative (Negative) Ur Oxycodone Screen Negative (Negative) Urine Methadone Screen Negative (Negative) Acetaminophen < 10.0 (10.0-30.0) ug/mL Ur Barbiturates Screen Negative (Negative) U Tricyclic Antidepress Negative (Negative) Ur Phencyclidine Scrn Negative (Negative) Ur Amphetamines Screen Negative (Negative) U Methamphetamines Scrn POSITIVE A (Negative) U Benzodiazepines Scrn Negative (Negative) Urine Cocaine Screen Negative (Negative) U Marijuana (THC) Screen POSITIVE A (Negative) Ur Drug Screen Comment See Note Ethyl Alcohol < 0.01 (0.01-0.03) % <Nicolle Colvin MD - Last Filed: 10/24/24 23:56> Lab Results 10/24/24 10/24/24 Range/Units 02:15 02:30 WBC 10.75 (4.50-11.00) K/uL RBC 5.08 (4.30-5.90) m/uL Hgb 15.7 (13.5-17.5) gm/dL Hct 46.1 (37.0-53.0) % MCV 91 (80-100) fL MCH 31 (26-34) pg MCHC 34 (32-36) gm/dL RDW Coeff of Chemo 12.7 (11.5-15.5) % Plt Count 287 (140-440) K/uL Neut % (Auto) 71.3 (42.0-72.0) % Lymph % (Auto) 15.3 L (20-44) % [place] % (Auto) 9.3 (0.0-11.0) % Eos % (Auto) 3.4 (0.0-7.0) % Baso % (Auto) 0.5 (0.0-3.0) % Neut # (Auto) 7.67 H (1.7-7.0) K/uL Lymph # (Auto) 1.60 (0.90-2.90) K/uL [place] # (Auto) 1.00 H (0.00-0.90) K/UL Eos # (Auto) 0.37 (0.00-0.50) K/uL Baso # (Auto) 0.05 (0.00-0.30) K/uL Abs Immat Gran (auto) 0.02 (0.00-0.30) K/uL Imm/Tot Granulo (auto) 0.2 % Sodium 140 (135-149) mmol/L Potassium 4.0 (3.6-5.1) mmol/L Chloride 103 (96-114) mmol/L Carbon Dioxide 27 (20-32) mmol/L Anion Gap 10 (7-15) mEq/L BUN 20 (5-24) mg/dL Creatinine 0.7 (0.5-1.5) mg/dL Estimated Creat Clear 153.53 Estimated GFR 124 ml/min Glucose 111 (60-115) mg/dL Calcium 9.6 (8.4-10.6) mg/dL TSH 0.221 L (0.270-4.200) uIU/mL Free T4 1.11 (0.70-1.85) ng/dL Salicylates < 1.0 L (1.0-10) mg/dL Urine Opiates Screen Negative (Negative) Ur Oxycodone Screen Negative (Negative) Urine Methadone Screen Negative (Negative) Acetaminophen < 10.0 (10.0-30.0) ug/mL Ur Barbiturates Screen Negative (Negative) U Tricyclic Antidepress Negative (Negative) Ur Phencyclidine Scrn Negative (Negative) Ur Amphetamines Screen Negative (Negative) U Methamphetamines Scrn POSITIVE A (Negative) U Benzodiazepines Scrn Negative (Negative) Urine Cocaine Screen Negative (Negative) U Marijuana (THC) Screen POSITIVE A (Negative) Ur Drug Screen Comment See Note Ethyl Alcohol < 0.01 (0.01-0.03) % <Andrea Brito MD - Last Filed: 10/24/24 15:24> Discharge Plan Discharge Clinical Impression: Hypomania, Amphetamine delusional disorder <Nicolle Colvin MD - Last Filed: 10/24/24 23:56> Patient Disposition: Home w/ Parent or Adult <Nicolle Colvin MD - Last Filed: 10/24/24 23:56> Condition: Improved <Nicolle Colvin MD - Last Filed: 10/24/24 23:56> Additional Instructions: Avoid street drugs and use [id number] meds only as needed and directed. Follow up with MD or return if worsening. <Nicolle Colvin MD - Last Filed: 10/24/24 23:56> Prescriptions: No Action zolpidem [Ambien] .Route gabapentin 300 mg PO TID quetiapine 25 mg tablet 25 mg PO QPM escitalopram oxalate 10 mg tablet 10 mg PO DAILY <Nicolle Colvin MD - Last Filed: 10/24/24 23:56> Follow Up/Referrals: Provider,Not a Local [Primary Care Provider] - <Nicolle Colvin MD - Last Filed: 10/24/24 23:56> Stand Alone Forms: MyHealth Info Instructions <Nicolle Colvin MD - Last Filed: 10/24/24 23:56>
--- OUTSIDE RECORDS SUMMARY | 2024-10-24 02:27 | XMS_ITS | Clinical Summary ---
Author Organization [employer] [facility] Address [address] [place] [address] Care Team Providers Care Corncob Pipe Supervisor Name Role Phone Pcp, No Primary Care [...] CDT - 10/05/2024 11:17 AM CDT Emergency [facility] [address] [place] [address] Darren Gloria MD Bowler, MD Tyrone García, Travis Iglesias MD Schizoaffective disorder, unspecified type (HC) (Primary Dx); JERALD (generalized anxiety disorder); Paranoia (HC); Nightmares; Depression, unspecified depression type; Insomnia, unspecified type; Noncompliance with medication regimen Discharge Disposition: Home Self Care 10/04/2024 Travel 09/27/2024 Patient Outreach [employer] Care Management - Care Management Navigation/[facility] [address] [place] [id number] [facility]-Community Resource Navigation 09/11/2024 10:35 AM LEAK GANG SUPERVISOR Office Visit [facility] [address] [place] [address] Clint Sargent, Depression (Would like to get my head straight - just moved here in June - previously doctoring in [place] ); Anxiety (Has used lexapro, Seroquel, gabapentin); [...] on file Legal Sex Male 10:33 AM LEAK GANG SUPERVISOR Gender Identity Not on file Sexual Orientation [...] indicated(A) Not Detected 10/05/2024 6:57 AM CDT [facility] PCP,QUAL Not Detected Not Detected 10/05/2024 6:57 AM CDT [facility] COCAINE,QUAL Not Detected Not Detected 10/05/2024 6:57 AM CDT [facility] METHAMPHETAMINE , QUALITATIVE Non-negative , consider further testing if indicated(A) Not Detected 10/05/2024 6:57 AM CDT [facility] OPIATES,QUAL Not Detected Not Detected 10/05/2024 6:57 AM T [facility] AMPHETAMINE, QUALITATIVE Non-negative , consider further testing if indicated(A) Not Detected 10/05/2024 6:57 AM T [facility] BENZODIAZEPINES ,QUAL Non-negative , consider further testing if indicated(A) Not Detected 10/05/2024 6:57 AM CDT [facility] TRICYCLICS,QUAL Not Detected Not Detected 10/05/2024 6:57 AM CDT [facility] METHADONE, QUALITATIVE Not Detected Not Detected 10/05/2024 6:57 AM [facility] BARBITURATES,QU AL Not Detected Not Detected 10/05/2024 6:57 AM T [facility] OXYCODONE, QUALITATIVE Not Detected Not Detected 10/05/2024 6:57 AM [facility] BUPRENORPHINE, QUALITATIVE Not Detected Not Detected 10/05/2024 6:57 AM [facility] Urine URINE SPECIMEN / Unknown Non-Blood / Unknown 10/05/2024 6:27 AM CDT 10/05/2024 6:32 AM CDT [facility] - 10/05/2024 6:57 AM CDT Please Note: [...] us Darren Gloria MD URINE Final Result [facility] [address] [address], * (ABNORMAL) GLUCOSE METER (10/04/2024 9:33 PM CDT) [facility] GLUCOSE METER 101(H) 65 - 100 mg/dL 10/05/2024 12:31 AM CDT [facility] Blood BLOOD SPECIMEN / Unknown 10/04/2024 9:33 PM CDT 10/05/2024 12:31 AM CDT Darren Gloria MD CHEMISTRY Final Result Performing Organization Address City/[facility]/ZIP Co de Phone Number [facility] [facility] [address] [place] [address], from Last 3 Months Insurance [facility] Care Teams Corncob Pipe Supervisor Relationship Specialty Start Date End Date Pcp, No . PCP - General 09/01/24
[2024-10-24] MEDS: LORazepam 0.5 MG TABLET PO (02:35)
[2024-10-24] MEDS: DIVALPROEX SODIUM ER TAB 250 MG PO (02:36)
[2024-10-24 02:37] LABS: Basophils Absolute Auto 0.05 K/uL (0.00-0.30); Basophils Percent Auto 0.5 % (0.0-3.0); Eosinophils Absolute Auto 0.37 K/uL (0.00-0.50); Eosinophils Percent Auto 3.4 % (0.0-7.0); Hematocrit 46.1 % (37.0-53.0); Hemoglobin* 15.7 gm/dL (13.5-17.5); Immature Granulocytes Abs Auto 0.02 K/uL (0.00-0.30); Immature Granulocytes Pct Auto 0.2 %; Lymphocytes Percent Auto 15.3 % (20-44); Mean Corpuscular HGB Conc 34 gm/dL (32-36); Mean Corpuscular Hemoglobin 31 pg (26-34); Mean Corpuscular Volume 91 fL (80-100); Monocytes Percent Auto 9.3 % (0.0-11.0); Neutrophils Absolute Auto 7.67 K/uL (1.7-7.0); Neutrophils Percent Auto 71.3 % (42.0-72.0); Platelet Count* 287 K/uL (140-440); RDW Coefficient of Variation % 12.7 % (11.5-15.5); Red Blood Count 5.08 m/uL (4.30-5.90); White Blood Count* 10.75 K/uL (4.50-11.00)
[2024-10-24 02:39] LABS: Slide Review Reflex No
[2024-10-24] MEDS: PRAMIPEXOLE 0.25 MG TABLET 0.125 MG PO (02:41)
[2024-10-24] MEDS: ARIPiprazole 10 MG TABLET 5 MG PO (02:41)
[2024-10-24 02:50] LABS: Chloride* 103 mmol/L (96-114); Sodium* 140 mmol/L (135-149)
[2024-10-24 02:53] LABS: Blood Urea Nitrogen* 20 mg/dL (5-24); Calcium* 9.6 mg/dL (8.4-10.6); Creatinine* 0.7 mg/dL (0.5-1.5); Est. Creatinine Clearance* 153.53; Estimated Glomerular Filt Rate 124 ml/min; Glucose* 111 mg/dL (60-115)
[2024-10-24 03:00] LABS: Acetaminophen* < 10.0 ug/mL (10.0-30.0); Salicylate* < 1.0 mg/dL (1.0-10)
[2024-10-24 03:01] LABS: Ethanol* < 0.01 % (0.01-0.03)
[2024-10-24 03:07] LABS: Anion Gap 10 mEq/L (7-15); Carbon Dioxide* 27 mmol/L (20-32)
[2024-10-24 03:25] LABS: TSH With Reflex to FT4* 0.221 uIU/mL (0.270-4.200)
[2024-10-24 03:51] LABS: Free T4 Free Thyroxine* 1.11 ng/dL (0.70-1.85)
[2024-10-24 04:00] LABS: Amphetamine Screen Urine Negative (Negative); Barbiturate Screen Urine Negative (Negative); Benzodiazepines Screen Urine Negative (Negative); Cannabinoid Screen Urine POSITIVE (Negative); Cocaine Screen Urine Negative (Negative); Methadone Screen Urine Negative (Negative); Methamphetamines Screen Urine POSITIVE (Negative); Opiate Screen Urine Negative (Negative); Oxycodone Screen Urine Negative (Negative); Phencyclidine Screen Urine Negative (Negative); Tricyclic Antidepressant Urine Negative (Negative)
[2024-10-24] MEDS: LORazepam 1 MG TABLET 2 MG PO (04:22)
[2024-10-24 04:31] VITALS: BP 135/89; PULSE 109; RESP 16; TEMP 36.8; O2SAT 97
[2024-10-24] MEDS: MELATONIN 3 MG TABLET 9 MG PO (04:33)
[2024-10-24 09:00] VITALS: BP 123/79; PULSE 88; RESP 16; O2SAT 95
--- NOTE | 2024-10-24 12:12 | ED.NURSE ---
Patient mother (Rubina) calling for an update. Nurse informed mom we do not have authorization to talk with her. Mom able to give us information. State Héctor was seeing hallucinations, is a recovering alcoholic and addict. She thinks he is having a very stressful time since he cannot see his children and is almost homeless. Rubina also states he needs help with medication management. He goes through periods of taking medications and then not. Rubina number is [phone] if we can talk with her.
== END 2024-10-24 15:30 | disposition home or self-care (01) ==
PROVIDERS: Emergency Provider Family Medicine
DX: F30.8 Other manic episodes (principal); F15.950 Other stimulant use, unspecified with stimulant-induced psychotic disorder with delusions
CPT/HCPCS: 36415; 80048; 80143; 80179; 80306; 82077; 84439; 84443; 85025; 99283; 99284; Q3014; A9270

== ENCOUNTER 2024-11-27 06:05 | Emergency (ER) | payer MEDICAID, SELFPAY ==
--- NOTE | 2024-11-27 06:08 | ED_ITS ---
HPI - General Adult General Time Seen by Provider: 06:08 Date Seen: 11/27/24 Chief complaint: Extremity Pain/Injury, Lower Stated complaint: Right back heal pain Time Seen by Provider: 11/27/24 06:06 Source: patient Mode of arrival: ambulatory Limitations: no limitations History of Present Illness HPI narrative: 34-year-old male who comes in today with heel and ankle pain. Patient reports surgery a couple years ago, says he still limps and family wanted him to get checked. He denies any new injury or fall, no pain. Related Data Home Medications ?Medication ?Instructions ?Recorded ?Confirmed gabapentin 300 mg PO TID 02/27/24 10/24/24 zolpidem .Route 02/27/24 escitalopram oxalate 10 mg tablet 10 mg PO DAILY 10/24/24 10/24/24 quetiapine 25 mg tablet 25 mg PO QPM 10/24/24 10/24/24 Allergies Allergy/AdvReac Type Severity Reaction Status Date / Time No Known Drug Allergies Allergy Verified 10/24/24 02:53 PFSH PFS Medical History Bipolar disorder ?F31.9 - Bipolar disorder, unspecified (ICD-10) Paranoia ?F22 - Delusional disorders (ICD-10) Social History Do you use any of these nicotine containing products: Vaping Products Non-prescribed substance use: denies use Exam Narrative: Exam Narrative: General: well nourished , NAD Head: Atraumatic and normocephalic ENT: External ears and external nose are normal Eyes: Conjunctiva clear, pupils are equal reactive, external ocular motions are intact Neck: Full spontaneous range of motion of the neck Lungs: No respiratory distress Musculoskeletal: Mild swelling of the right ankle without erythema or tenderness, no deformity Neurologic: No gross focal neurologic deficits Skin: No rashes Psych: Mood and affect are appropriate Const: Vital Signs, click to edit/add: Vital Signs - 24 hr 11/27/24 06:11 Temperature 98.9 F Pulse Rate [Pulse Oximeter] 133 H Respiratory Rate 18 Blood Pressure [Ri ght Upper Arm] 133/96 H Pulse Oximetry 96 Oxygen Delivery Me thod Room Air Course Course ED Course: Reviewed most recent visit with the emergency department at [place] which was for schizoaffective disorder and paranoia. Patient presents today with concerns of limb and poor right ankle flexibility, prior ORIF a couple years ago. Denies new injury or pain. Patient with some mild psychomotor agitation, does not seem to be reacting to internal stimuli. Patient with history of schizoaffective disorder, I have seen the patient in the past and he seems much better today from a psychiatric standpoint than at prior visits. Reevaluation(s) Time of Reevaluation #1: 06:38 Reevaluation #1: X-ray independently interpreted by me with calcaneal screws and plates in place, no evidence for loosening. Vital Signs Vital signs: Initial Vital Signs Temperature 98.9 F 11/27/24 06:11 Temperature Source Temporal Artery Scan 11/27/24 06:11 Pulse Rate 133 H 11/27/24 06:11 Respiratory Rate 18 11/27/24 06:11 Blood Pressure 133/96 H 11/27/24 06:11 Blood Pressure Mean 108 H 11/27/24 06:11 Blood Pressure Position Sitting 11/27/24 06:11 Pulse Oximetry 96 11/27/24 06:11 Oxygen Delivery Method Room Air 11/27/24 06:11 Vital Signs Temperature 98.9 F 11/27/24 06:11 Pulse Rate 133 H 11/27/24 06:11 Respiratory Rate 18 11/27/24 06:11 Blood Pressure 133/96 H 11/27/24 06:11 Pulse Oximetry 96 11/27/24 06:11 Oxygen Delivery Method Room Air 11/27/24 06:11 Temperature 98.9 F 11/27/24 06:11 Pulse Rate 133 H 11/27/24 06:11 Respiratory Rate 18 11/27/24 06:11 Blood Pressure 133/96 H 11/27/24 06:11 Pulse Oximetry 96 11/27/24 06:11 Oxygen Delivery Method Room Air 11/27/24 06:11 Discharge Plan Discharge Clinical Impression: Stiffness of right ankle joint, S/P ORIF (open reduction internal fixation) fracture Patient Disposition: Home, Self-Care Condition: Stable Additional Instructions: You were seen today for stiffness in the right ankle. The screws and plates in the ankle appear to be in the correct place. It is not unusual after ankle surgery to have stiffness in the ankle, this sometimes gets better over time, however sometimes it can get worse. Follow-up with your primary care doctor to discuss physical therapy to help with stiffness and range of motion. You can use warm packs on the ankle to help with stiffness as well. Activity Level: No Restrictions and Activity as Tolerated Discharge Diet: Regular Prescriptions: No Action zolpidem [Ambien] .Route gabapentin 300 mg PO TID quetiapine 25 mg tablet 25 mg PO QPM escitalopram oxalate 10 mg tablet 10 mg PO DAILY Follow Up/Referrals: Provider,Not a Local [Primary Care Provider] - Stand Alone Forms: [employer] Info Instructions
--- OUTSIDE RECORDS SUMMARY | 2024-11-27 06:08 | XMS_ITS | Clinical Summary ---
Author Organization [employer] [facility] Address [address] [place] [id number] Care Team Providers Care Intake Counselor Name Role Phone Pcp, No Primary Care [...] CDT - 10/05/2024 11:17 AM CDT Emergency [facility] Emergency Department [address] [place] [address] Darren Gloria MD Bowler, MD Tyrone García, Travis Iglesias MD Schizoaffective disorder, unspecified type (HC) (Primary Dx); JERALD (generalized anxiety disorder); Paranoia (HC); Nightmares; Depression, unspecified depression type; Insomnia, unspecified type; Noncompliance with medication regimen Discharge Disposition: Home Self Care 10/04/2024 Travel 09/27/2024 Patient Outreach [employer] Care Management - Care Management Navigation/[facility] [address] [place] [id number] Hasmukh Qamar [facility]-Community Resource Navigation 09/11/2024 10:35 AM SALARY MANAGER Office Visit [facility] [address] [place] [address] Clint Sargent, Depression (Would like to get my head straight - just moved here in June - previously doctoring in [place] ); Anxiety (Has used lexapro, Seroquel, gabapentin); [...] on file Legal Sex Male 10:33 AM SALARY MANAGER Gender Identity Not on file Sexual Orientation [...] indicated(A) Not Detected 10/05/2024 6:57 AM CDT [facility] PCP,QUAL Not Detected Not Detected 10/05/2024 6:57 AM CDT [facility] COCAINE,QUAL Not Detected Not Detected 10/05/2024 6:57 AM CDT [facility] METHAMPHETAMINE , QUALITATIVE Non-negative , consider further testing if indicated(A) Not Detected 10/05/2024 6:57 AM CDT [facility] OPIATES,QUAL Not Detected Not Detected 10/05/2024 6:57 AM T [facility] AMPHETAMINE, QUALITATIVE Non-negative , consider further testing if indicated(A) Not Detected 10/05/2024 6:57 AM T [facility] BENZODIAZEPINES ,QUAL Non-negative , consider further testing if indicated(A) Not Detected 10/05/2024 6:57 AM CDT [facility] TRICYCLICS,QUAL Not Detected Not Detected 10/05/2024 6:57 AM CDT [facility] METHADONE, QUALITATIVE Not Detected Not Detected 10/05/2024 6:57 AM [facility] BARBITURATES,QU AL Not Detected Not Detected 10/05/2024 6:57 AM T [facility] OXYCODONE, QUALITATIVE Not Detected Not Detected 10/05/2024 6:57 AM [facility] BUPRENORPHINE, QUALITATIVE Not Detected Not Detected 10/05/2024 6:57 AM [facility] Urine URINE SPECIMEN / Unknown Non-Blood / Unknown 10/05/2024 6:27 AM CDT 10/05/2024 6:32 AM CDT [facility] - 10/05/2024 6:57 AM CDT Please Note: [...] us Darren Gloria MD URINE Final Result [facility] [address] [address], * (ABNORMAL) GLUCOSE METER (10/04/2024 9:33 PM CDT) [facility] GLUCOSE METER 101(H) 65 - 100 mg/dL 10/05/2024 12:31 AM CDT [facility] Blood BLOOD SPECIMEN / Unknown 10/04/2024 9:33 PM CDT 10/05/2024 12:31 AM CDT Darren Gloria MD CHEMISTRY Final Result Performing Organization Address City/[facility]/ZIP Co de Phone Number [facility] [employer] [address] [place] [address], from Last 3 Months Insurance [facility] Care Teams Intake Counselor Relationship Specialty Start Date End Date Pcp, No . PCP - General 09/01/24
[2024-11-27 06:11] VITALS: BP 133/96; PULSE 133; RESP 18; TEMP 37.2; O2SAT 96; BMI 25.8
--- NOTE | 2024-11-27 06:17 | CRLHL7_ITS ---
For Patients: As a result of the Cures Act, medical imaging exams and procedure reports are released immediately into your electronic medical record. You may view this report before your referring provider. If you have questions, please contact your health care provider. INDICATION: PAIN, H/O ORIF. (Sic) COMPARISON: None available. TECHNIQUE: Views: 3 FINDINGS: Mineralization: Normal. Alignment: Normal. Bones and Joints: No acute fracture is identified. Calcaneal ORIF. Posterior facet subtalar joint osteoarthrosis. Soft Tissues: Posterior tibiotalar joint effusion. IMPRESSION: No specific findings to explain the clinical history. Calcaneal ORIF. Posterior facet subtalar joint osteoarthrosis. Posterior tibiotalar joint effusion. Dictated by Harris Kathleen MD @ 11/27/2024 6:58:09 AM (Electronically Signed)
[2024-11-27 07:05] VITALS: BP 125/85; PULSE 99; RESP 18; TEMP 37.2; O2SAT 96
[2024-11-27 07:06] VITALS: BP 125/85; PULSE 99; RESP 18; TEMP 37.2
== END 2024-11-27 07:06 | disposition home or self-care (01) ==
PROVIDERS: Emergency Provider Family Medicine
DX: M25.671 Stiffness of right ankle, not elsewhere classified (principal)
CPT/HCPCS: 73610; 99283; 99284